=== PATIENT | female | born 1985 | race Caucasian/White ===

== ENCOUNTER 2020-11-23 18:49 | Emergency (ER) | payer OTHER ==
[2020-11-23 19:46] LABS: BASOPHILS # (AUTO) 0.1 10^3/uL (0.0-0.1); BASOPHILS % (AUTO) 0.6 %; EOSINOPHILS % (AUTO) 0.3 %; HCT - HEMATOCRIT 35.9 % (37.0-47.0); HGB - HEMOGLOBIN 11.8 g/dL (12.0-16.0); LYMPHOCYTES # (AUTO) 2.2 10^3/uL (1.5-3.5); LYMPHOCYTES % (AUTO) 18.7 %; MEAN CORPUSCULAR HEMOGLOBIN 28.9 pg (27.0-31.0); MEAN CORPUSCULAR HGB CONC 32.9 g/dL (32.0-36.0); MEAN PLATELET VOLUME 9.1 fL (7.9-10.8); MONOCYTES # (AUTO) 0.8 10^3/uL (0.0-1.0); MONOCYTES % (AUTO) 6.5 %; NEUTROPHILS # (AUTO) 8.7 10^3/uL (1.5-6.6); NEUTROPHILS % (AUTO) 73.6 %; PLT - PLATELET COUNT 338 10^3/uL (130-450); RED BLOOD COUNT 4.08 10^6/uL (4.20-5.40); RED CELL DISTRIBUTION WIDTH 14.3 % (12.0-15.0); WHITE BLOOD COUNT 11.8 x10^3/uL (4.8-10.8)
[2020-11-23] MEDS ORDERED: IOVERSOL 320 100 ML VIAL IVP ONE ×2 (19:53→20:51)
[2020-11-23 19:57] LABS: ALBUMIN 4.2 g/dL (3.2-5.5); ALBUMIN/GLOBULIN RATIO 1.3 (1.0-2.2); BILIRUBIN,TOTAL 0.3 mg/dL (0.2-1.0); CALCIUM 9.4 mg/dL (8.5-10.3); CREATININE 0.7 mg/dL (0.4-1.0); POTASSIUM 3.4 mmol/L (3.5-5.0); TOTAL PROTEIN 7.4 g/dL (6.7-8.2)
--- NOTE | 2020-11-23 20:06 | ED Physician Documentation ---
PD HPI ABD PAIN - Stated complaint Stated Complaint: RT ABD PX - Chief complaint Chief Complaint: Abd Pain - History obtained from History obtained from: Patient - History of Present Illness Timing - onset: Enter time (1600), Today Timing - duration: Hours Timing - details: Gradual onset, Still present Quality: Sharp, Pain Location: RLQ Radiation: No: Chest, , Lower back, Left flank, Left shoulder, Right flank, Right shoulder, Upper back Improved by: Laying still Worsened by: Eating Associated symptoms: Nausea. No: Fever, Vomiting, Diarrhea, Constipation, Chest pain, Dizzy, Near syncope / syncope, Loss of appetite Similar symptoms before: Has not had sx before Recently seen: Not recently seen - Additional information Additional information: 35-year-old female is developed right lower quadrant abdominal pain over the past several hours and this has persisted she has become quite uncomfortable with that and comes to the emergency department for evaluation. She felt a first this may just be a gas pain but when it didn't resolve she thought she should come and be seen. Review of Systems Constitutional: denies: Fever Eyes: denies: Decreased vision Ears: denies: Ear pain Nose: denies: Rhinorrhea / runny nose, Congestion Throat: denies: Sore throat Cardiac: denies: Chest pain / pressure Respiratory: denies: Dyspnea, Cough GI: reports: Abdominal Pain, Nausea. denies: Vomiting, Constipation, Diarrhea : denies: Dysuria, Frequency Skin: denies: Rash Musculoskeletal: denies: Neck pain, Back pain, Extremity pain Neurologic: denies: Generalized weakness, Focal weakness, Numbness PD PAST MEDICAL HISTORY - Past Medical History Past Medical History: No - Past Surgical History Past Surgical History: No - Present Medications Home Medications: Ambulatory Orders Medication Instructions Recorded Confirmed No Known Home Medications 11/23/20 11/23/20 - Allergies Allergies/Adverse Reactions: Allergies Allergy/AdvReac Type Severity Reaction Status Date / Time Penicillins Allergy Unknown Verified 11/23/20 19:13 - Social History Does the pt smoke?: No Smoking Status: Never smoker Does the pt drink ETOH?: Yes Does the pt have substance abuse?: No - Immunizations Immunizations are current?: Yes - POLST Patient has POLST: No PD ED PE NORMAL - Vitals Vital signs reviewed: Yes (hypertensive ) - General General: Alert and oriented X 3, No acute distress, Well developed/nourished - HEENT HEENT: Atraumatic, PERRL, EOMI - Neck Neck: Supple, no meningeal sign, No bony TTP - Cardiac Cardiac: RRR, No murmur - Respiratory Respiratory: No respiratory distress, Clear bilaterally - Abdomen Abdomen: Normal bowel sounds, Soft, Non distended, No organomegaly, Other (mild tendereness to deep palpation of the right lower quadrant. No garding. Feels 'full" in the RLQ with deep palpation/abdominal shaking from the left to the RLQ. 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, No motor deficit, No sensory deficit, Normal speech Eye Opening: Spontaneous Motor: Obeys Commands Verbal: Oriented GCS Score: 15 - Psych Psych: Normal mood, Normal affect Results - Vitals Vitals: Vital Signs - 24 hr 11/23/20 11/23/20 11/23/20 18:53 19:00 21:00 Temperature 36.4 C L 36.4 C L 36.5 C Heart Rate 88 88 81 Respiratory 14 14 15 Rate Blood Pressure 136/85 H 136/85 H 129/79 O2 Saturation 98 98 99 11/23/20 22:35 Temperature 36.5 C Heart Rate 82 Respiratory 16 Rate Blood Pressure 131/75 H O2 Saturation 100 Oxygen O2 Source Room air - Labs Labs: Laboratory Tests 11/23/20 11/23/20 11/23/20 19:21 19:21 20:11 WBC 11.8 H RBC 4.08 L Hgb 11.8 L Hct 35.9 L MCV 88.0 MCH 28.9 MCHC 32.9 RDW 14.3 Plt Count 338 MPV 9.1 Neut # (Auto) 8.7 H Lymph # (Auto) 2.2 [place] # (Auto) 0.8 Eos # (Auto) 0.0 Baso # (Auto) 0.1 Absolute Nucleated RBC 0.00 Nucleated RBC % 0.0 Sodium 134 L Potassium 3.4 L Chloride 100 L Carbon Dioxide 25 Anion Gap 9.0 BUN 10 Creatinine 0.7 Estimated GFR (MDRD) 95 Glucose 117 H Calcium 9.4 Total Bilirubin 0.3 AST 27 ALT 39 Alkaline Phosphatase 39 L Total Protein 7.4 Albumin 4.2 Globulin 3.2 Albumin/Globulin Ratio 1.3 Lipase 29 Urine Color YELLOW Urine Clarity CLEAR Urine pH 8.0 H Ur Specific Severance 1.020 Urine Protein NEGATIVE Urine Glucose (UA) NEGATIVE Urine Ketones NEGATIVE Urine Occult Blood TRACE-INTA Urine Nitrite NEGATIVE Urine Bilirubin NEGATIVE Urine Urobilinogen 0.2 (NORMAL) Ur Leukocyte Esterase NEGATIVE Ur Microscopic Review NOT INDICATED Urine Culture Comments NOT INDICATED Urine HCG, Qual NEGATIVE - Rads (name of study) CT ab/pel w Radiology: Prelim report reviewed (Impression: 1. No acute process. 2. 50 mm diameter left adnexal cyst. Follow-up ultrasound in 6 weeks is recommended to ensure resolution. 3. Normal appendix), EMP read indepedently, See rad report Pelvic ultrasound Radiology: Prelim report reviewed (Impression: 1. No evidence of ovarian torsion 2. left adnexal hemorrhagic cyst measuring up to 4.5 cm. 3. Small amount of free fluid present within the adnexa and posterior cul-de-sac.), EMP read indepedently, See rad report Procedures - Bedside sono Bedside sono by EMP: With use bedside ultrasound the right kidney is imaged there is no evidence of hydronephrosis there is mild tenderness to sono PET sonographic palpation. The right upper quadrant is imaged there is a solitary gallstone in the fundus of the gallbladder that shadows the gallbladder is not distended gallbladder wall is not thickened there is no pericholecystic fluid and the gallbladder is not sonographically tender. PD MEDICAL DECISION MAKING - ED course Complexity details: reviewed results, re-evaluated patient, considered differential, d/w patient ED course: 35-year-old female with acute right lower quadrant abdominal pain has some pain associated with palpation and a CT scan of the abdomen pelvis is obtained to rule out appendicitis. She does not have appendicitis and on the CT exam. An obvious le ovarian cyst is present and is a fair size. Ultrasound imaging is undertaken and demonstrates a hemorrhagic cyst. The patient has resolution of her pain while here in the emergency department and no further treatment is indicated. She is given instructions about ovarian cyst and the expectation she should have improvement in her symptoms and she is asked to follow-up with [facility] prior to deployment for consideration of starting control to control her symptoms. Departure - Departure Disposition: 01 Home, Self Care Clinical Impression: Cyst of ovary Qualifiers: Laterality: left Qualified Code(s): N83.202 - Unspecified ovarian cyst, left side Condition: Stable Instructions: ED Cyst Ovarian Follow-Up: ALDEN DUENAS MD [Primary Care Provider] - Discharge Date/Time: 11/23/20 22:36
[2020-11-23 20:28] LABS: BILIRUBIN,URINE NEGATIVE (NEGATIVE); GLUCOSE, URINE (UA) NEGATIVE (NEGATIVE); KETONES,URINE (UA) NEGATIVE (NEGATIVE); LEUKOCYTE ESTERASE, URINE NEGATIVE (NEGATIVE); NITRITE,URINE NEGATIVE (NEGATIVE); OCCULT BLOOD,URINE TRACE-INTA (NEGATIVE); PROTEIN,URINE NEGATIVE (NEGATIVE); UROBILINOGEN,URINE 0.2 (NORMAL) E.U./dL (NORMAL)
[2020-11-23 20:30] LABS: CLARITY,URINE CLEAR (CLEAR); HCG UR QUAL NEGATIVE
--- NOTE | 2020-11-23 21:05 | CT Report ---
PROCEDURE: Abdomen/Pelvis W INDICATIONS: RLQ pain CONTRAST: IV CONTRAST: Optiray 320 ml: 100 PO CONTRAST: *NO PO CONTRAST TECHNIQUE: After the administration of IV contrast, 5 mm thick sections acquired from the diaphragms to the symp hysis. 5 mm thick coronal and sagittal reformats were acquired. For radiation dose reduction, the f ollowing was used: automated exposure control, adjustment of mA and/or kV according to patient size. COMPARISON: None. FINDINGS: Image quality: Excellent. ABDOMEN: Lung bases: Lung bases are clear. Heart size is normal. Solid organs: Liver and spleen are normal in size and enhancement. Gallbladder is within normal its Biliary system is non dilated. Pancreas enhances normally. No adrenal nodules. Kidneys demons trate normal size and enhancement, without hydronephrosis. Peritoneum and bowel: Bowel loops demonstrate normal wall thickness and caliber. No free fluid or a ir. Normal appendix. Nodes and vessels: No retroperitoneal or mesenteric adenopathy by size criteria. Aorta and inferior vena cava are normal in size. Miscellaneous: No ventral hernias. PELVIS: Genitourinary: Bladder wall thickness is normal. 50 mm diameter left adnexal cyst. Miscellaneous: No inguinal hernias or adenopathy. Bones: No suspicious bony lesions. No vertebral body compression fractures. IMPRESSION: 1. No acute process. 2. 50 mm diameter left adnexal cyst. Follow-up ultrasound in 6 weeks is recommended to ensure resolut ion. 3. Normal appendix. Reviewed by: Li Bergeron MD on 11/23/2020 9:03 PM PST Approved by: Li Bergeron MD on 11/23/2020 9:03 PM PST Station ID: [id number]
[2020-11-23 22:36] VITALS: BP 131/75
--- NOTE | 2020-11-24 10:18 | Ultrasound Report ---
PROCEDURE: Pelvic w/Transvag+Doppler Comp INDICATIONS: large L ovarian cyst r/o torsion TECHNIQUE: Real-time scanning was performed of the pelvic organs, with image documentation. Additional endovagi nal scanning was necessary due to incomplete visualization of the adnexal and endometrial structures by transabdominal scanning. COMPARISON: CT abdomen pelvis 11/23/2020 FINDINGS: No pathologic free abdominal or pelvic fluid. Uterus: Uterus is normal in size at 7.9 x 4.6 x 5.5 cm. Volume measures 104.5 cc. The endometrium m easures 15 mm in combined thickness. Ovaries: Right ovary measures 2.5 x 1.6 x 2.8 cm, volume 5.7 cc. Left ovary measures 5.5 x 5.1 x 5.3 cm, volume 78 cc. Focus of heterogeneous echogenicity within the left ovary is identified measuring 4.5 x 4.0 x 4.2 cm. Vascular flow is identified to both ovaries. Trace free fluid is noted within the cul-de-sac and left adnexal region. IMPRESSION: 1. No evidence of torsion. 2. Left hemorrhagic cyst, consistent with CT finding of 11/23/2020. The above findings are concordant with preliminary report. Reviewed by: Lisa Taylor MD on 11/24/2020 10:17 AM PST Approved by: Lisa Taylor MD on 11/24/2020 10:17 AM PST Station ID: [id number]
== END 2020-11-23 22:36 | disposition home or self-care (01) ==
LOC: ED 18:49
DX: N83.202 Unspecified ovarian cyst, left side (principal); R10.31 Right lower quadrant pain; R11.0 Nausea
CPT/HCPCS: 36415; 74177; 76830; 76856; 80053; 81003; 81025; 83690; 85025; 93975; 99284; Q9967; 81001; 87086